=== PATIENT | male | born 1950 | race Caucasian/White ===

== ENCOUNTER 2020-12-28 13:06 | Emergency (ER) | payer OTHER ==
[2020-12-29 10:07] LABS: SARS-CoV-2 NAA Not Detected (Not Detected)
== END 2020-12-28 14:14 | disposition home or self-care (01) ==
LOC: JVIRT 13:06
DX: Z20.822 Contact with and (suspected) exposure to COVID-19 (principal)
CPT/HCPCS: C9803; G2251-GT; Q3014-GT; U0003; U0005

== ENCOUNTER 2021-01-02 05:31 | Emergency (ER) | payer OTHER ==
[2021-01-02] MEDS ORDERED: KETOROLAC TROMETHAMINE 30 MG/1 ML VIAL ONE (05:42)
[2021-01-02] MEDS ORDERED: SODIUM CHLORIDE 1,000 ML IV ONE (05:42)
[2021-01-02] MEDS ORDERED: KETOROLAC TROMETHAMINE 30 MG/1 ML VIAL IVPUSH ONE (05:42)
[2021-01-02 05:52] VITALS: BMI 27.6
[2021-01-02 06:52] LABS: BASO % 0.7 % (0-2.0); EOS % 1.4 % (0-4.5); HEMATOCRIT 40.6 % (35.4-49); HEMOGLOBIN 14.2 GM/dL (11.7-16.9); LYMPH % 24.9 % (8-40); MCH 30.5 pg (25.7-33.7); MCHC 34.9 g/dl (32.0-35.9); MEAN CELL VOLUME 87.4 fl (80-96); MEAN PLT VOLUME 8.8 fl (7.5-11.1); MONO % 9.6 % (3.8-10.2); NEUT % 63.4 % (42.8-82.8); PLATELET COUNT 181 K/MM3 (134-434); RBC 4.65 M/mm3 (4.00-5.60); RDW 12.6 % (11.9-15.9)
[2021-01-02 07:21] LABS: ALBUMIN 3.8 g/dl (3.4-5.0); BLOOD UREA NITROGEN 21.7 mg/dL (7-18); CALCIUM 9.1 mg/dL (8.5-10.1)
[2021-01-02 07:24] LABS: CREATININE 1.2 mg/dL (0.55-1.3)
[2021-01-02 07:26] LABS: BILIRUBIN,TOTAL 0.6 mg/dL (0.2-1)
[2021-01-02] MEDS ORDERED: TAMSULOSIN HCL 0.4 MG CAP PO ONE (07:48)
[2021-01-02] MEDS ORDERED: TAMSULOSIN HCL 0.4 MG CAP ONE (07:56)
[2021-01-02 08:01] LABS: EPI CELLS 12 /uL (0-25.1); HYALINE CASTS 2 /uL (0-3.1); URINE APPEARANCE CLOUDY; URINE BACTERIA 28 /uL (0-1359); URINE BILIRUBIN NEGATIVE (NEGATIVE); URINE COLOR YELLOW; URINE GLUCOSE (UA) 1+ (NEGATIVE); URINE KETONE NEGATIVE (NEGATIVE); URINE LEUK ESTERASE NEGATIVE (NEGATIVE); URINE NITRITE NEGATIVE (NEGATIVE); URINE PROTEIN 1+ (NEGATIVE); URINE WBC 9 /uL (0-25.8)
[2021-01-02 08:14] VITALS: BP 129/68; PULSE 73; TEMP 98.1
[2021-01-02 08:44] LABS: URINE RBC 354.1 /uL (0-23.9)
== END 2021-01-02 08:17 | disposition home or self-care (01) ==
LOC: FER 05:31
PROC: 3E0333Z Introduction of Anti-inflammatory into Peripheral Vein, Percutaneous Approach (ICD-10-PCS; principal; 2021-01-02)
PROC: 3E0337Z Introduction of Electrolytic and Water Balance Substance into Peripheral Vein, Percutaneous Approach (ICD-10-PCS; 2021-01-02)
DX: N20.0 Calculus of kidney (principal)
CPT/HCPCS: 36415; 74176-TC; 80053; 81003; 85025; 99284-25

== ENCOUNTER 2022-01-03 15:00 | Emergency (ER) | payer OTHER ==
[2022-01-03] MEDS ORDERED: LACTATED RINGERS SOLUTION 1000 ML INFUS.BAG IV ONE (15:28)
[2022-01-03] MEDS ORDERED: ACETAMINOPHEN 1000 MG/100 ML BAG IVPB ONE (15:28)
[2022-01-03] MEDS ORDERED: ACETAMINOPHEN INJECTION 100 ML IVPB ONE (15:35)
[2022-01-03 16:06] LABS: HEMATOCRIT 40.7 % (35.4-49); HEMOGLOBIN 14.7 G/dL (11.7-16.9); MCH 30.8 pg (25.7-33.7); MCHC 36.1 g/dl (32.0-35.9); MEAN CELL VOLUME 85.4 fl (80-96); MEAN PLT VOLUME 8.1 fl (7.5-11.1); RBC 4.77 10^6/uL (4.00-5.60); RDW 14.8 % (11.9-15.9)
[2022-01-03 16:13] VITALS: BP 169/80; PULSE 66; TEMP 98.7; BMI 26.6
[2022-01-03 16:36] LABS: CALCIUM 9.5 mg/dl (8.5-10); CREATININE 1.3 mg/dl (0.55-1.3); TOT PROT 6.9 g/dl (6.4-8.2)
[2022-01-03 16:50] LABS: EPITHELIAL CELLS FEW /hpf
[2022-01-03] MEDS ORDERED: KETOROLAC TROMETHAMINE 15 MG/ML VIAL IVPUSH ONE (17:00)
[2022-01-03] MEDS ORDERED: KETOROLAC TROMETHAMINE 15 MG/ML VIAL ONE (17:03)
== END 2022-01-03 17:21 | disposition home or self-care (01) ==
LOC: FER 15:00
PROC: 3E0333Z Introduction of Anti-inflammatory into Peripheral Vein, Percutaneous Approach (ICD-10-PCS; principal; 2022-01-03)
PROC: 3E0333Z Introduction of Anti-inflammatory into Peripheral Vein, Percutaneous Approach (ICD-10-PCS; 2022-01-03)
DX: N20.0 Calculus of kidney (principal)
CPT/HCPCS: 36415; 74176-TC; 80053; 81003; 81015; 85027; 87086; 99284-25